=== PATIENT | female | born 1975 | race Caucasian/White ===

== ENCOUNTER 2023-10-09 17:53 | Emergency (ER) | payer OTHER ==
[2023-10-09 20:00] LABS: BASOPHILS ABSOLUTE AUTO 0.07 K/uL (0.00-0.20); BASOPHILS PERCENT AUTO 0.6 % (0.0-1.0); EOSINOPHILS ABSOLUTE AUTO 0.55 K/uL (0.00-0.45); EOSINOPHILS PERCENT AUTO 4.6 % (0.0-6.0); HEMATOCRIT 36.2 % (37.0-47.0); IMMATURE GRAN ABSOLUTE AUTO 0.06 K/uL (0.00-0.05); IMMATURE GRAN PERCENT AUTO 0.5 % (0.0-0.4); LYMPHOCYTES ABSOLUTE AUTO 2.14 K/uL (1.00-4.80); LYMPHOCYTES PERCENT AUTO 17.7 % (24.0-44.0); MEAN CORPUSCULAR HEMOGLOBIN 29.4 pg (28.0-32.0); MEAN CORPUSCULAR HGB CONC 35.9 g/dL (32.0-36.0); MEAN CORPUSCULAR VOLUME 81.9 fL (83.0-99.0); MEAN PLATELET VOLUME 10.2 fL (9.4-12.3); MONOCYTES ABSOLUTE AUTO 0.89 K/uL (0.00-0.80); MONOCYTES PERCENT AUTO 7.4 % (0.0-8.0); NEUTROPHILS ABSOLUTE AUTO 8.37 K/uL (1.80-7.70); NEUTROPHILS PERCENT AUTO 69.2 % (41.0-71.0); PLATELET COUNT,PLT 405 K/uL (150-400); RED BLOOD CELL COUNT 4.42 M/uL (4.10-5.30); WHITE BLOOD CELL COUNT,WBC 12.08 K/uL (3.9-11.3)
[2023-10-09] MEDS: Sodium Chloride 0.9% 1,000 ML IV ONE (20:36)
[2023-10-09 20:41] LABS: A/G RATIO 0.6 (0.9-1.6); ALBUMIN 2.6 g/dL (3.4-5.0); BILIRUBIN TOTAL 0.2 mg/dL (0.2-1.0); CALCIUM 8.2 mg/dL (8.5-10.1); CARBON DIOXIDE,CO2 24.2 mmol/L (21.0-32.0); CREATININE 1.1 mg/dL (0.6-1.0); EST CRCL DRUG DOSING (CG) 66.9 mL/min; PHOSPHORUS 4.2 mg/dL (2.6-4.7); POTASSIUM,K 3.8 mmol/L (3.5-5.1); PROTEIN TOTAL,TP 6.9 g/dL (6.4-8.2)
[2023-10-09 20:42] LABS: CORONAVIRUS COVID-19 NAA NEGATIVE (NEGATIVE); INFLUENZA A NAA NEGATIVE (NEGATIVE); INFLUENZA B NAA NEGATIVE (NEGATIVE); RESPIRATORY SYNCYTIAL VIR NAA NEGATIVE (NEGATIVE)
[2023-10-09 20:45] LABS: LACTIC ACID 1.6 mmol/L (0.4-2.0)
[2023-10-09 21:27] LABS: APPEARANCE,URINE SLT CLOUDY; BILIRUBIN,URINE NEGATIVE (NEGATIVE); COLOR,URINE YELLOW; GLUCOSE,URINE 250 mg/dL (NEGATIVE); KETONES,URINE NEGATIVE (NEGATIVE); LEUKOCYTE ESTERASE,URINE NEGATIVE (NEGATIVE); NITRITE,URINE NEGATIVE (NEGATIVE); OCCULT BLOOD,URINE NEGATIVE (NEGATIVE); PROTEIN,URINE NEGATIVE (NEGATIVE); UROBILINOGEN,URINE 0.2 EU/dL (<2.0)
== END 2023-10-09 22:12 | disposition home or self-care (01) ==
LOC: MW.ED 17:53
DX: E11.65 Type 2 diabetes mellitus with hyperglycemia (principal); I10 Essential (primary) hypertension; Z79.4 Long term (current) use of insulin; Z79.899 Other long term (current) drug therapy; Z88.2 Allergy status to sulfonamides; Z88.0 Allergy status to penicillin; Z88.1 Allergy status to other antibiotic agents; Z91.040 Latex allergy status; Z91.048 Other nonmedicinal substance allergy status
CPT/HCPCS: 0241U; 36415; 71045; 80053; 81003; 82550; 83605; 83735; 83880; 84100; 84484; 85025; 87651; 93005; 96360; 99285; J7030; 93010; 99282

== ENCOUNTER 2023-10-11 20:04 | Observation (INO) | payer OTHER ==
[2023-10-11 21:04] LABS: APPEARANCE,URINE CLEAR; BILIRUBIN,URINE NEGATIVE (NEGATIVE); COLOR,URINE YELLOW; GLUCOSE,URINE >=1000 mg/dL (NEGATIVE); KETONES,URINE NEGATIVE (NEGATIVE); LEUKOCYTE ESTERASE,URINE NEGATIVE (NEGATIVE); NITRITE,URINE NEGATIVE (NEGATIVE); OCCULT BLOOD,URINE NEGATIVE (NEGATIVE); PROTEIN,URINE NEGATIVE (NEGATIVE); UROBILINOGEN,URINE 0.2 EU/dL (<2.0)
[2023-10-11 21:12] LABS: AMPHETAMINES SCREEN, URINE NEGATIVE (CUTOFF=500); BARBITURATE SCREEN,URINE NEGATIVE (CUTOFF=200); BENZODIAZEPINES SCREEN,URINE NEGATIVE (CUTOFF=150); BUPRENORPHINE SCREEN,URINE NEGATIVE (CUTOFF=10); METHADONE SCREEN, URINE NEGATIVE (CUTOFF=200); METHAMPHETAMINES SCREEN, URINE NEGATIVE (CUTOFF=500); OXYCODONE SCREEN,URINE PRESUMPTIVE POSITIVE (CUT0FF=100); PCP SCREEN,URINE NEGATIVE (CUTOFF=25); THC SCREEN,URINE 20 NG/ML NEGATIVE (CUTOFF=50)
[2023-10-11] MEDS: Sodium Chloride 0.9% 10 ML Syringe FLUSH PRN (21:17)
[2023-10-11] MEDS: Sodium Chloride 0.9% 2.5 ML Syringe FLUSH PRN (21:18)
[2023-10-11 21:19] LABS: BASE EXCESS VENOUS 2.5 (-2.0-3.0); PH,VENOUS 7.43 (7.31-7.41)
[2023-10-11 21:22] LABS: BACTERIA,URINE FEW (NEGATIVE); EPITHELIAL CELLS,URINE FEW (NONE-FEW); RBC,URINE 0-2 (0-2/HPF); WBC,URINE 0-2 (0-5/HPF)
[2023-10-11 21:23] LABS: BASOPHILS ABSOLUTE AUTO 0.06 K/uL (0.00-0.20); BASOPHILS PERCENT AUTO 0.6 % (0.0-1.0); EOSINOPHILS PERCENT AUTO 3.7 % (0.0-6.0); HEMATOCRIT 38.7 % (37.0-47.0); HEMOGLOBIN 13.5 g/dL (12.0-16.0); IMMATURE GRAN ABSOLUTE AUTO 0.05 K/uL (0.00-0.05); IMMATURE GRAN PERCENT AUTO 0.5 % (0.0-0.4); MEAN CORPUSCULAR HEMOGLOBIN 29.5 pg (28.0-32.0); MEAN CORPUSCULAR HGB CONC 34.9 g/dL (32.0-36.0); MEAN CORPUSCULAR VOLUME 84.5 fL (83.0-99.0); MEAN PLATELET VOLUME 10.4 fL (9.4-12.3); MONOCYTES ABSOLUTE AUTO 0.79 K/uL (0.00-0.80); MONOCYTES PERCENT AUTO 7.3 % (0.0-8.0); NEUTROPHILS ABSOLUTE AUTO 6.67 K/uL (1.80-7.70); NEUTROPHILS PERCENT AUTO 61.9 % (41.0-71.0); PLATELET COUNT,PLT 399 K/uL (150-400); RED BLOOD CELL COUNT 4.58 M/uL (4.10-5.30); WHITE BLOOD CELL COUNT,WBC 10.77 K/uL (3.9-11.3)
[2023-10-11 22:04] LABS: A/G RATIO 0.6 (0.9-1.6); ALANINE AMINOTRANSFERASE,ALT 62 IU/L (14-63); ALBUMIN 2.9 g/dL (3.4-5.0); ALKALINE PHOSPHATASE 147 U/L (46-116); ASPARTATE AMNIOTRANSFERASE,AST 37 IU/L (15-37); BILIRUBIN TOTAL 0.2 mg/dL (0.2-1.0); BLOOD UREA NITROGEN,BUN 13 mg/dL (7.0-18.0); CALCIUM 8.2 mg/dL (8.5-10.1); CARBON DIOXIDE,CO2 25.2 mmol/L (21.0-32.0); CHLORIDE,CL 101 mmol/L (98-107); CREATININE 0.8 mg/dL (0.6-1.0); EST CRCL DRUG DOSING (CG) 91.99 mL/min; GLUCOSE RANDOM 273 mg/dL (74-106); LIPASE 64 U/L (16-77); POTASSIUM,K 4.1 mmol/L (3.5-5.1); PROTEIN TOTAL,TP 7.7 g/dL (6.4-8.2); SODIUM,NA 137 mmol/L (136-145); TSH ULTRASENSITIVE 0.32 uIU/mL (0.36-3.74)
[2023-10-11 22:11] LABS: ESTIMATED GFR 90 mL/min (>60); ETHANOL BLOOD MEDICAL < 3.0 mg/dL
[2023-10-11 22:35] LABS: T4 FREE 0.83 ng/dL (0.76-1.46)
[2023-10-12] MEDS: Furosemide 40 MG/4 ML VIAL IVPUSH ONE (00:09)
[2023-10-12] MEDS: tiZANidine 4 MG Tab PO PRN (02:05)
[2023-10-12] MEDS: Acetaminophen/oxyCODONE 325-5 MG Tab PO PRN (02:06)
[2023-10-12 06:25] LABS: BASOPHILS ABSOLUTE AUTO 0.05 K/uL (0.00-0.20); BASOPHILS PERCENT AUTO 0.6 % (0.0-1.0); EOSINOPHILS ABSOLUTE AUTO 0.36 K/uL (0.00-0.45); EOSINOPHILS PERCENT AUTO 4.1 % (0.0-6.0); HEMATOCRIT 35.7 % (37.0-47.0); HEMOGLOBIN 12.3 g/dL (12.0-16.0); IMMATURE GRAN ABSOLUTE AUTO 0.05 K/uL (0.00-0.05); IMMATURE GRAN PERCENT AUTO 0.6 % (0.0-0.4); LYMPHOCYTES ABSOLUTE AUTO 2.77 K/uL (1.00-4.80); LYMPHOCYTES PERCENT AUTO 31.5 % (24.0-44.0); MEAN CORPUSCULAR HGB CONC 34.5 g/dL (32.0-36.0); MEAN CORPUSCULAR VOLUME 84.2 fL (83.0-99.0); MEAN PLATELET VOLUME 10.6 fL (9.4-12.3); MONOCYTES PERCENT AUTO 10.2 % (0.0-8.0); NEUTROPHILS ABSOLUTE AUTO 4.67 K/uL (1.80-7.70); PLATELET COUNT,PLT 345 K/uL (150-400); RED BLOOD CELL COUNT 4.24 M/uL (4.10-5.30)
[2023-10-12 06:47] LABS: A/G RATIO 0.6 (0.9-1.6); ALBUMIN 2.7 g/dL (3.4-5.0); BILIRUBIN TOTAL 0.2 mg/dL (0.2-1.0); CARBON DIOXIDE,CO2 27.7 mmol/L (21.0-32.0); CREATININE 0.9 mg/dL (0.6-1.0); EST CRCL DRUG DOSING (CG) 81.77 mL/min; POTASSIUM,K 3.7 mmol/L (3.5-5.1); PROTEIN TOTAL,TP 7.1 g/dL (6.4-8.2)
[2023-10-12] MEDS ORDERED: Ondansetron 4 MG/2 ML SDV IVPUSH PRN (09:35)
[2023-10-12] MEDS: DULoxetine 60 MG Cap PO SCH (12:24)
[2023-10-12] MEDS: metroNIDAZOLE 250 MG Tab PO SCH (12:25)
[2023-10-12] MEDS: Cephalexin 500 MG Cap PO SCH (12:25)
[2023-10-12] MEDS: INSULIN LISPRO 100 UNIT/ML SUBCUT SCH (12:26)
[2023-10-12] MEDS: Docusate Sodium 100 MG Cap PO PRN (12:28)
[2023-10-12] MEDS: Fluconazole 150 MG Tab PO ONE (12:45)
[2023-10-12] MEDS ORDERED: PREGABALIN 300 MG PO SCH (13:58)
[2023-10-12] MEDS: Nystatin Topical Powder 15 GM Bottle TOP SCH (14:21)
[2023-10-12] MEDS: PREGABALIN PO SCH (14:22)
[2023-10-12] MEDS ORDERED: rOPINIRole 1 MG Tab PO SCH (21:00)
[2023-10-13] MEDS ORDERED: SEMAGLUTIDE 3 MG PO SCH (09:00)
== END 2023-10-12 14:55 | disposition home or self-care (01) ==
LOC: MW.ED 20:04 → MW.MS 10-12
PROVIDERS: ADMIT Internal Medicine; ATTEND Internal Medicine
DX: R60.0 Localized edema (principal); K04.7 Periapical abscess without sinus; B37.9 Candidiasis, unspecified; E11.65 Type 2 diabetes mellitus with hyperglycemia; I10 Essential (primary) hypertension; F32.A Depression, unspecified; F41.9 Anxiety disorder, unspecified; F17.210 Nicotine dependence, cigarettes, uncomplicated; Z79.4 Long term (current) use of insulin; Z79.899 Other long term (current) drug therapy; Z88.0 Allergy status to penicillin; Z88.2 Allergy status to sulfonamides; Z88.1 Allergy status to other antibiotic agents; Z88.8 Allergy status to other drugs, medicaments and biological substances; Z91.048 Other nonmedicinal substance allergy status
CPT/HCPCS: 36415; 70450; 71045; 80053; 80305; 80307; 81001; 82009; 82140; 82803; 82947; 83605; 83690; 83880; 84439; 84443; 84484; 85025; 87040; 93306; A9270; J1940; J3490

== ENCOUNTER 2023-12-03 07:50 | Emergency (ER) | payer OTHER ==
[2023-12-03 08:34] LABS: BASOPHILS ABSOLUTE AUTO 0.04 K/uL (0.00-0.20); BASOPHILS PERCENT AUTO 0.5 % (0.0-1.0); EOSINOPHILS ABSOLUTE AUTO 0.49 K/uL (0.00-0.45); EOSINOPHILS PERCENT AUTO 6.4 % (0.0-6.0); IMMATURE GRAN ABSOLUTE AUTO 0.03 K/uL (0.00-0.05); IMMATURE GRAN PERCENT AUTO 0.4 % (0.0-0.4); LYMPHOCYTES ABSOLUTE AUTO 2.23 K/uL (1.00-4.80); LYMPHOCYTES PERCENT AUTO 29.3 % (24.0-44.0); MEAN CORPUSCULAR HEMOGLOBIN 29.2 pg (28.0-32.0); MEAN CORPUSCULAR VOLUME 83.3 fL (83.0-99.0); MEAN PLATELET VOLUME 9.8 fL (9.4-12.3); MONOCYTES PERCENT AUTO 9.2 % (0.0-8.0); NEUTROPHILS ABSOLUTE AUTO 4.13 K/uL (1.80-7.70); NEUTROPHILS PERCENT AUTO 54.2 % (41.0-71.0); PLATELET COUNT,PLT 325 K/uL (150-400); WHITE BLOOD CELL COUNT,WBC 7.62 K/uL (3.9-11.3)
[2023-12-03] MEDS: methylPREDNISolone Sodium Succinate 40 MG/1 ML SDV IVPUSH ONE (08:35)
[2023-12-03] MEDS: Ketorolac 30 MG/ML SDV IVPUSH ONE (08:35)
[2023-12-03] MEDS: Sodium Chloride 0.9% 1,000 ML IV ONE (08:36)
[2023-12-03] MEDS: cefTRIAXone 1 GM in Sodium Chloride 0.9% 50 ML IV STA (08:36)
[2023-12-03 08:47] LABS: INR 0.98 (0.86-1.11)
[2023-12-03 08:53] LABS: A/G RATIO 0.7 (0.9-1.6); ALBUMIN 3.1 g/dL (3.4-5.0); BILIRUBIN TOTAL 0.4 mg/dL (0.2-1.0); CALCIUM 9.2 mg/dL (8.5-10.1); CARBON DIOXIDE,CO2 27.3 mmol/L (21.0-32.0); CREATININE 0.9 mg/dL (0.6-1.0); EST CRCL DRUG DOSING (CG) 83.14 mL/min; POTASSIUM,K 3.8 mmol/L (3.5-5.1); PROTEIN TOTAL,TP 7.7 g/dL (6.4-8.2)
[2023-12-03 08:56] LABS: LACTIC ACID 1.3 mmol/L (0.4-2.0)
[2023-12-03] MEDS: Iopamidol 755 Mg/ML 100 ML Bottle IVPUSH ONE (09:57)
[2023-12-03] MEDS: oxyCODONE 5 MG Tab PO ONE (11:20)
== END 2023-12-03 11:53 | disposition home or self-care (01) ==
LOC: MW.ED 07:50
DX: K04.7 Periapical abscess without sinus (principal); K02.9 Dental caries, unspecified; I10 Essential (primary) hypertension; E11.9 Type 2 diabetes mellitus without complications; Z90.710 Acquired absence of both cervix and uterus; Z79.899 Other long term (current) drug therapy; Z79.4 Long term (current) use of insulin; Z88.0 Allergy status to penicillin; Z91.040 Latex allergy status; Z88.2 Allergy status to sulfonamides; Z88.1 Allergy status to other antibiotic agents; Z91.048 Other nonmedicinal substance allergy status; Z75.8 Other problems related to medical facilities and other health care
CPT/HCPCS: 36415; 70487; 70491; 80053; 83605; 85025; 85610; 87040; 96365; 96375; 99284; A9270; J0696; J1885; J2920; J3490; J7030; Q9967

== ENCOUNTER 2023-12-12 08:24 | Emergency (ER) | payer OTHER ==
[2023-12-12 09:04] LABS: BASOPHILS ABSOLUTE AUTO 0.04 K/uL (0.00-0.20); BASOPHILS PERCENT AUTO 0.3 % (0.0-1.0); EOSINOPHILS ABSOLUTE AUTO 0.42 K/uL (0.00-0.45); EOSINOPHILS PERCENT AUTO 3.5 % (0.0-6.0); HEMATOCRIT 39.4 % (37.0-47.0); HEMOGLOBIN 13.6 g/dL (12.0-16.0); IMMATURE GRAN ABSOLUTE AUTO 0.04 K/uL (0.00-0.05); IMMATURE GRAN PERCENT AUTO 0.3 % (0.0-0.4); LYMPHOCYTES ABSOLUTE AUTO 1.12 K/uL (1.00-4.80); LYMPHOCYTES PERCENT AUTO 9.2 % (24.0-44.0); MEAN CORPUSCULAR HEMOGLOBIN 29.2 pg (28.0-32.0); MEAN CORPUSCULAR HGB CONC 34.5 g/dL (32.0-36.0); MEAN CORPUSCULAR VOLUME 84.5 fL (83.0-99.0); MEAN PLATELET VOLUME 9.7 fL (9.4-12.3); MONOCYTES ABSOLUTE AUTO 0.61 K/uL (0.00-0.80); NEUTROPHILS PERCENT AUTO 81.7 % (41.0-71.0); PLATELET COUNT,PLT 259 K/uL (150-400); RED BLOOD CELL COUNT 4.66 M/uL (4.10-5.30); WHITE BLOOD CELL COUNT,WBC 12.13 K/uL (3.9-11.3)
[2023-12-12] MEDS: Sodium Chloride 0.9% 1,000 ML IV STA ×2 (09:13→12:16)
[2023-12-12] MEDS: Benzocaine 20% Topical Spray UD MUCMEM ONE (09:13)
[2023-12-12] MEDS: Sodium Chloride 0.9% 10 ML Syringe FLUSH PRN (09:13)
[2023-12-12] MEDS: Sodium Chloride 0.9% 2.5 ML Syringe FLUSH PRN (09:13)
[2023-12-12] MEDS: Lidocaine 2% Viscous Solution 15 ML UD PO ONE (09:13)
[2023-12-12 09:30] LABS: A/G RATIO 0.7 (0.9-1.6); ALBUMIN 3.2 g/dL (3.4-5.0); BILIRUBIN TOTAL 0.4 mg/dL (0.2-1.0); CALCIUM 8.4 mg/dL (8.5-10.1); CARBON DIOXIDE,CO2 24.9 mmol/L (21.0-32.0); CREATININE 0.9 mg/dL (0.6-1.0); EST CRCL DRUG DOSING (CG) 81.77 mL/min; POTASSIUM,K 3.7 mmol/L (3.5-5.1); PROTEIN TOTAL,TP 7.5 g/dL (6.4-8.2)
[2023-12-12] MEDS: Iopamidol 755 MG/ML 500 ML Multipack Bottle IVPUSH STA (10:13)
[2023-12-12] MEDS: Lidocaine 1% with EPINEPHrine 1:100,000 50 ML MDV INFILT ONE (10:21)
[2023-12-12] MEDS: Morphine 4 MG/ML Syringe IVPUSH ONE ×2 (10:24→14:55)
[2023-12-12] MEDS: methylPREDNISolone Sodium Succinate 40 MG/1 ML SDV IVPUSH ONE (11:06)
[2023-12-12] MEDS: metroNIDAZOLE 250 MG Tab PO ONE (11:06)
[2023-12-12] MEDS: cefTRIAXone 1 GM in Sodium Chloride 0.9% 50 ML IV ONE (11:06)
[2023-12-12] MEDS: Morphine 2 MG/ML SYRINGE IVPUSH ONE (12:14)
[2023-12-12 13:15] LABS: HEMOGLOBIN A1C 10.8 %
== END 2023-12-12 14:56 | disposition home or self-care (01) ==
LOC: MW.ED 08:24
DX: K04.7 Periapical abscess without sinus (principal); E11.65 Type 2 diabetes mellitus with hyperglycemia; I10 Essential (primary) hypertension; F17.210 Nicotine dependence, cigarettes, uncomplicated; Z79.4 Long term (current) use of insulin; Z79.899 Other long term (current) drug therapy; Z88.0 Allergy status to penicillin; Z88.1 Allergy status to other antibiotic agents; Z88.2 Allergy status to sulfonamides; Z88.5 Allergy status to narcotic agent; Z91.048 Other nonmedicinal substance allergy status; Z91.040 Latex allergy status; Z75.8 Other problems related to medical facilities and other health care
CPT/HCPCS: 36415; 70491; 80053; 82947; 83036; 83605; 85025; 96361; 96365; 96375; 96376; 99284; A9270; J0696; J2270; J2920; J3490; J7030; Q9967

== ENCOUNTER 2024-10-19 20:25 | Emergency (ER) | payer OTHER ==
[2024-10-19] MEDS ORDERED: Sodium Chloride 0.9% 2.5 ML Syringe FLUSH PRN (20:40)
[2024-10-19] MEDS ORDERED: Sodium Chloride 0.9% 10 ML Syringe FLUSH PRN (20:40)
[2024-10-19 22:27] LABS: BASOPHILS ABSOLUTE AUTO 0.06 K/uL (0.00-0.20); BASOPHILS PERCENT AUTO 0.4 % (0.0-1.0); EOSINOPHILS ABSOLUTE AUTO 0.11 K/uL (0.00-0.45); EOSINOPHILS PERCENT AUTO 0.7 % (0.0-6.0); HEMATOCRIT 40.6 % (37.0-47.0); HEMOGLOBIN 14.1 g/dL (12.0-16.0); IMMATURE GRAN ABSOLUTE AUTO 0.07 K/uL (0.00-0.05); IMMATURE GRAN PERCENT AUTO 0.5 % (0.0-0.4); LYMPHOCYTES ABSOLUTE AUTO 1.51 K/uL (1.00-4.80); LYMPHOCYTES PERCENT AUTO 10.1 % (24.0-44.0); MEAN CORPUSCULAR HEMOGLOBIN 28.7 pg (28.0-32.0); MEAN CORPUSCULAR HGB CONC 34.7 g/dL (32.0-36.0); MEAN CORPUSCULAR VOLUME 82.5 fL (83.0-99.0); MEAN PLATELET VOLUME 9.9 fL (9.4-12.3); MONOCYTES ABSOLUTE AUTO 0.97 K/uL (0.00-0.80); MONOCYTES PERCENT AUTO 6.5 % (0.0-8.0); NEUTROPHILS ABSOLUTE AUTO 12.18 K/uL (1.80-7.70); NEUTROPHILS PERCENT AUTO 81.8 % (41.0-71.0); PLATELET COUNT,PLT 301 K/uL (150-400); RED BLOOD CELL COUNT 4.92 M/uL (4.10-5.30)
[2024-10-19] MEDS: Sodium Chloride 0.9% 1,000 ML IV ONE (22:27)
[2024-10-19 22:38] LABS: PH,VENOUS 7.36 (7.31-7.41)
[2024-10-19 23:09] LABS: A/G RATIO 0.7 (0.9-1.6); ALANINE AMINOTRANSFERASE,ALT 42 IU/L (14-63); ALBUMIN 3.5 g/dL (3.4-5.0); ALKALINE PHOSPHATASE 147 U/L (46-116); ASPARTATE AMNIOTRANSFERASE,AST 20 IU/L (15-37); BILIRUBIN TOTAL 0.4 mg/dL (0.2-1.0); BLOOD UREA NITROGEN,BUN 14 mg/dL (7.0-18.0); CALCIUM 8.7 mg/dL (8.5-10.1); CARBON DIOXIDE,CO2 22.5 mmol/L (21.0-32.0); CHLORIDE,CL 97 mmol/L (98-107); EST CRCL DRUG DOSING (CG) 75.23 mL/min; GLUCOSE RANDOM 394 mg/dL (74-106); POTASSIUM,K 3.3 mmol/L (3.5-5.1); PROTEIN TOTAL,TP 8.2 g/dL (6.4-8.2); SODIUM,NA 134 mmol/L (136-145); TSH ULTRASENSITIVE 0.67 uIU/mL (0.36-3.74)
[2024-10-19 23:10] LABS: ESTIMATED GFR 69 mL/min (>60); ETHANOL BLOOD MEDICAL < 3.0 mg/dL
== END 2024-10-19 23:32 | disposition home or self-care (01) ==
LOC: MW.ED 20:25
DX: F16.10 Hallucinogen abuse, uncomplicated (principal); E11.65 Type 2 diabetes mellitus with hyperglycemia; I10 Essential (primary) hypertension; Z90.710 Acquired absence of both cervix and uterus; Z86.73 Personal history of transient ischemic attack (TIA), and cerebral infarction without residual deficits; Z88.1 Allergy status to other antibiotic agents; Z88.0 Allergy status to penicillin; Z88.8 Allergy status to other drugs, medicaments and biological substances; Z91.040 Latex allergy status; Z91.048 Other nonmedicinal substance allergy status; Z79.4 Long term (current) use of insulin; Z79.84 Long term (current) use of oral hypoglycemic drugs; Z79.899 Other long term (current) drug therapy
CPT/HCPCS: 36415; 70450; 80053; 80307; 82009; 82803; 84443; 85025; 96360; 99285; J7030; 99283